=== PATIENT | female | born 1965 ===

== ENCOUNTER → 2017-05-25 | Outpatient (REF) ==
--- NOTE | 2017-05-25 16:41 | Diagnostic Imaging Report ---
INDICATION: Knee pain after fall. 3 views. FINDINGS: The articulating surfaces are smooth. Joint spaces are well-preserved. There are no fractures. IMPRESSION: Normal left knee. Dictated by: Dictated on workstation # [id number]
== END | disposition home or self-care (01) ==
LOC: OCC 15:55
PROVIDERS: ATTEND Nurse Practitioner Family
CPT/HCPCS: 73562